=== PATIENT | male | born 1970 | race Hispanic/Latino ===

== ENCOUNTER 2019-02-01 05:30 | Day surgery (SDC) | payer OTHER ==
[~2019-02-01] VITALS: Ht 188 cm; Wt 105.7 kg
[2019-02-01] VITALS (7 sets, daily range): BP systolic 78–125; BP diastolic 44–74
[~2019-02-01 05:30] MED LIST: ACET-66 PO; ASPI-555 PO; FERS325 PO; INSU100I35 SQ; METF-446 PO; PANT40TA25 PO; PROP10TA10 PO; ROSU10TA27 PO; SILD50TA PO
[2019-02-01] MEDS ORDERED: SODIUM CHLORIDE 0.9% 1000ML 1,000 ML IV ONE (05:47)
[2019-02-01] MEDS ORDERED: PROPOFOL 10 MG/ML 20ML VIAL IV ONE (07:25)
== END 2019-02-01 08:21 | disposition home or self-care (01) ==
LOC: ENDO 05:30 → DAH 05:30 → ENDO 08:21
PROVIDERS: ATTEND Internal Medicine Gastroenterology
DX: I85.00 Esophageal varices without bleeding (principal); K76.6 Portal hypertension; E11.9 Type 2 diabetes mellitus without complications; K76.0 Fatty (change of) liver, not elsewhere classified; Z79.899 Other long term (current) drug therapy; Z79.4 Long term (current) use of insulin; Z79.84 Long term (current) use of oral hypoglycemic drugs; Z98.890 Other specified postprocedural states; Z68.31 Body mass index [BMI] 31.0-31.9, adult
CPT/HCPCS: 43244; 82948; A4606; J2704; J7030

== ENCOUNTER 2019-07-04 09:14 | Day surgery (SDC) | payer OTHER ==
[~2019-07-04] VITALS: Ht 182.9 cm; Wt 111.1 kg
[~2019-07-04 09:14] MED LIST changes: -ASPI-555 PO; +CHOL100040 PO; -FERS325 PO; +OMEP-50 PO; -PANT40TA25 PO; -PROP10TA10 PO; -ROSU10TA27 PO; +ROSU20TA31 PO; -SILD50TA PO; +SODIUM CHLORIDE 0.9% 1000ML 1,000 ML IV ONE
[2019-07-04 10:58] LABS: BASOPHILS % (AUTO) 0.8 % (0.0-5.0); EOSINOPHILS % (AUTO) 5.6 % (0.0-8.0); HEMATOCRIT 41.6 % (42-54); LYMPHOCYTES % (AUTO) 25.9 % (21.0-51.0); MEAN CORPUSCULAR HEMOGLOBIN 32.9 pg (27.0-33.0); MEAN CORPUSCULAR HGB CONC 35.2 g/dL (32.0-36.0); MEAN CORPUSCULAR VOLUME 93.6 fL (79-99); MONOCYTES % (AUTO) 7.5 % (3.0-13.0); NEUTROPHILS % (AUTO) 60.2 % (40.0-77.0); NUCLEATED RED BLOOD CELLS 0.1 % (0.0-0.19); PLATELET COUNT (AUTO) 50 K/uL (130-400); RED BLOOD CELL COUNT(AUTO) 4.44 MIL/uL (4.50-6.20); RED CELL DISTRIBUTION WIDTH 15.1 % (11.0-15.5)
[2019-07-04 11:29] LABS: INR 1.25 (0.85-1.15)
[2019-07-04] MEDS ORDERED: PROPOFOL 10 MG/ML 20ML VIAL IV ONE (12:18)
[2019-07-04 12:22] VITALS: BP 96/50
[2019-07-04 12:29] VITALS: BP 103/54
[2019-07-04 12:34] VITALS: BP 103/62
[2019-07-04 12:40] VITALS: BP 109/66
[2019-07-04 12:47] VITALS: BP 109/61
[2019-07-04 12:55] VITALS: BP 119/72
== END 2019-07-04 12:58 ==
LOC: ENDO 09:14 → DAH 09:14 → ENDO 12:58
PROVIDERS: ATTEND Internal Medicine Gastroenterology
DX: I85.00 Esophageal varices without bleeding (principal); E11.9 Type 2 diabetes mellitus without complications; K76.6 Portal hypertension; K31.89 Other diseases of stomach and duodenum; Z79.899 Other long term (current) drug therapy; Z98.890 Other specified postprocedural states; Z72.89 Other problems related to lifestyle; Z79.84 Long term (current) use of oral hypoglycemic drugs; Z87.891 Personal history of nicotine dependence; Z83.3 Family history of diabetes mellitus
CPT/HCPCS: 36415; 43244; 82948 ×2; 85025; 85610; A4215; A4221; A4222; A4223; A4606; A4615; A4663; J2704; J7030

== ENCOUNTER 2019-12-13 08:09 | Day surgery (SDC) | payer OTHER ==
[~2019-12-13] VITALS: Ht 182.9 cm; Wt 109.0 kg
[~2019-12-13 08:09] MED LIST changes: -OMEP-50 PO; +OMEP20CA12 PO
[2019-12-13 09:00] VITALS: BP 160/77
[2019-12-13] MEDS ORDERED: PROPOFOL 10 MG/ML 20ML VIAL IV ONE ×2 (09:41→09:53)
[2019-12-13 10:21] VITALS: BP 110/61
[2019-12-13 10:26] VITALS: BP 108/60
[2019-12-13 10:31] VITALS: BP 105/63
[2019-12-13 10:36] VITALS: BP 118/74
== END 2019-12-13 10:55 | disposition home or self-care (01) ==
LOC: DAH 08:09 → ENDO 08:09
PROVIDERS: ATTEND Internal Medicine
DX: I85.10 Secondary esophageal varices without bleeding (principal); K76.6 Portal hypertension; K74.60 Unspecified cirrhosis of liver; K31.89 Other diseases of stomach and duodenum; E11.9 Type 2 diabetes mellitus without complications; Z79.899 Other long term (current) drug therapy; Z98.890 Other specified postprocedural states
CPT/HCPCS: 43244; 82948 ×2; A4215; A4221; A4222; A4223; A4606; A4615; A4663; J2704 ×2; J7030; 43239